=== PATIENT | male | born 1970 | race Caucasian/White ===

== ENCOUNTER 2016-11-25 17:25 | Emergency (ER) | payer BC ==
[2016-11-25] MEDS ORDERED: Sodium Chloride 0.9% 1,000 ML PRIMARY IV ONE (17:55)
[2016-11-25] MEDS ORDERED: NORMAL SALINE 10 ML SYRINGE FLUSH IVP PRN (17:55)
--- NOTE | 2016-11-25 18:18 | EKG ---
[address] [address] Measurements Intervals [place] Rate: 103 P: 85 OK: 128 QRS: 73 QRSD: 86 T: 18 QT: 336 QTc: 396 Interpretive Statements SINUS TACHYCARDIA TYPE 3 BRUGADA PATTERN (NON-DIAGNOSTIC) [COVED/SADDLEBACK ST ELEVATION > 0.1mV IN 2 OF V1-3] ABNORMAL RHYTHM ECG No previous ECG available for comparison Electronically Signed On 11-26-16 08:51:28 MDT by Errol Bunn MD [email or web address]
[2016-11-25 18:31] VITALS: RESP 16; TEMP 98.7
[2016-11-25 18:41] LABS: BASOPHILS # (AUTO) 0.08 10*3/UL; BASOPHILS % (AUTO) 1.9 % (0-1); EOSINOPHILS # (AUTO) 0.08 10*3/UL; EOSINOPHILS % (AUTO) 1.9 % (0-8); HEMATOCRIT 45.1 % (42.0-52.0); HEMOGLOBIN 14.7 g/dL (14.0-18.0); LYMPHOCYTES # (AUTO) 1.75 10*3/uL; MEAN CORPUSCULAR HEMOGLOBIN 28.5 PG (27-31); MEAN CORPUSCULAR HGB CONC 32.6 g/dL (33-37); MEAN CORPUSCULAR VOLUME 87.4 FL (80-90); MONOCYTES # (AUTO) 0.62 10*3/UL (0.3-0.8); MONOCYTES % (AUTO) 14.9 % (5-15); NEUTROPHILS # (AUTO) 1.64 10*3/UL; NEUTROPHILS % (AUTO) 39.3 % (50-80); RED BLOOD COUNT 5.16 10^6/uL (4.70-6.10)
[2016-11-25 18:44] LABS: PLATELET MORPHOLOGY COMMENT NORMAL MORPHOLOGY (NORM); RBC MORPHOLOGY COMMENT NORMAL MORPHOLOGY (NORM); WBC MORPHOLOGY COMMENT NORMAL MORPHOLOGY (NORM)
[2016-11-25 18:50] LABS: BLOOD UREA NITROGEN 9 mg/dL (7-22); CALCIUM 8.8 mg/dL (8.7-10.7); EST GLOMERULAR FILTRATION > 60 (>60 ml/min/1.73m(2)); MAGNESIUM 1.9 mg/dL (1.6-2.4); SERUM ALBUMIN 4.6 g/dL (3.5-4.8)
--- NOTE | 2016-11-25 19:03 | DI ---
HISTORY: Memory difficulty. COMPARISON: None available. TECHNIQUE: Contiguous axial unenhanced images of the brain were obtained from the skull base through the vertex and submitted for interpretation. 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 There is n o evidence of acute intracranial hemorrhage, mass effect, midline shift, or extra-axial fluid collect ion. There are no depressed calvarial fractures. The orbits and visualized facial bones are intact. The imaged paranasal sinuses are unremarkable as seen. IMPRESSION: 1. No evidence of acute intracranial abnormality. 2. 

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
== END 2016-11-25 19:30 | disposition home or self-care (01) ==
LOC: ER 17:25
DX: F10.129 Alcohol abuse with intoxication, unspecified (principal); R41.0 Disorientation, unspecified
CPT/HCPCS: 70450; 80053; 80320; 83735; 85025; 93005; 93010; 99283; J7030